=== PATIENT | male | born 1965 | race Caucasian/White ===

== ENCOUNTER 2017-09-10 22:41 | Emergency (ER) | payer MEDICARE, SELFPAY ==
[~2017-09-10] VITALS: Ht 177.8 cm; Wt 118.8 kg
[~2017-09-10 22:41] MED LIST: ASPI81CH PO; BUPR100 PO; EXEN5PENI SC; LEVO750 PO; LISI20 PO; METF500C PO; OMEPRAZOLE PO; PROC10 PO; RANI150 PO; SIMV40 PO; TAMS.4ER PO; TRAZ50 PO
[2017-09-10] MEDS ORDERED: Omeprazole20 M1 PO (23:05)
[2017-09-10] MEDS ORDERED: UROCIT-K5 MEQ PO (23:06)
[2017-09-10] MEDS ORDERED: FINA5 PO (23:07)
[2017-09-10] MEDS ORDERED: ALBU90OI INH (23:08)
[2017-09-10] MEDS ORDERED: VITAMIN B122500 MC1 PO (23:08)
[2017-09-10] MEDS ORDERED: MULTI VITAMIN1 EACH PO (23:09)
[2017-09-10 23:28] LABS: BASOPHILS ABSOLUTE AUTO 0.05 K/mm3 (0.00-0.23); BASOPHILS PERCENT AUTO 1 % (0-2); EOSINOPHILS ABSOLUTE AUTO 0.18 K/mm3 (0.00-0.68); EOSINOPHILS PERCENT AUTO 3 % (0-6); Hematocrit 37.9 % (37.0-53.0); IMMATURE GRAN ABSOLUTE AUTO 0.03 K/mm3 (0.00-0.10); IMMATURE GRAN PERCENT AUTO 1 % (0-1); LYMPHOCYTES ABSOLUTE AUTO 1.77 K/mm3 (0.84-5.20); LYMPHOCYTES PERCENT AUTO 27 % (21-46); MONOCYTES ABSOLUTE AUTO 0.48 K/mm3 (0.16-1.47); MONOCYTES PERCENT AUTO 7 % (4-13); Mean Corpuscular HGB 28.8 pg (26.0-34.0); Mean Corpuscular HGB Conc 34.3 g/dL (31.5-36.5); Mean Corpuscular Volume 84 fL (80-100); Mean Platelet Volume 9.3 fL (9.1-12.4); NEUTROPHILS ABSOLUTE AUTO 3.99 K/mm3 (1.96-9.15); NEUTROPHILS PERCENT AUTO 61 % (41-73); Platelet Count 247 K/mm3 (150-400); RDW Coefficient Variation 12.5 % (11.7-14.2); RDW Standard Deviation 37.4 fL (35.1-46.3); Red Blood Cell Count 4.52 M/mm3 (4.30-5.90)
[2017-09-10 23:47] LABS: Alanine Aminotransfer (ALT/SGP 37 U/L (12-78); Albumin, Blood 3.5 g/dL (3.4-5.0); Alk Phos 44 U/L (50-136); Anion Gap 7 mmol/L (6-16); Aspartate Aminotrans (AST/SGOT 27 U/L (12-37); Bilirubin, Total 0.2 mg/dL (0.1-1.0); Blood Urea Nitrogen 8 mg/dL (8-24); Bun/Creatinine Ratio 8.1 (12.0-20.0); CO2, Blood 26 mmol/L (21-32); Calcium, Blood 8.4 mg/dL (8.5-10.1); Chloride, Blood 109 mmol/L (98-108); Creatinine, Blood 0.98 mg/dL (0.60-1.20); Globulin, Blood 3.4 g/dL (2.2-4.0); Glomerular Filtration Rate >60 (60-); Glucose, Blood 127 mg/dL (70-99); Potassium, Blood 3.6 mmol/L (3.5-5.5); Sodium, Blood 142 mmol/L (136-145); Total Protein, Blood 6.9 g/dL (6.4-8.2)
== END 2017-09-11 01:54 | disposition home or self-care (01) ==
LOC: ER 22:41
PROVIDERS: Emergency Medicine
DX: S00.03XA Contusion of scalp, initial encounter (principal); F03.90 Unspecified dementia, unspecified severity, without behavioral disturbance, psychotic disturbance, mood disturbance, and anxiety; Z79.82 Long term (current) use of aspirin; Z88.0 Allergy status to penicillin; Z88.2 Allergy status to sulfonamides; Z91.013 Allergy to seafood; Z88.5 Allergy status to narcotic agent; Z91.018 Allergy to other foods; Z79.899 Other long term (current) drug therapy; W22.8XXA Striking against or struck by other objects, initial encounter
CPT/HCPCS: 36415; 70450; 80053; 85025; 93005; 93010; 96374; 96375; 99284; J1170; J2405

== ENCOUNTER 2018-08-03 19:00 | Emergency (ER) | payer MEDICARE, SELFPAY ==
[~2018-08-03] VITALS: Ht 177.8 cm; Wt 122.5 kg
[~2018-08-03 19:00] MED LIST changes: +ALBU90OI INH; +FINA5 PO; +MULTI VITAMIN1 EACH PO; +Omeprazole20 M1 PO; +UROCIT-K5 MEQ PO; +VITAMIN B122500 MC1 PO
[2018-08-03 19:44] LABS: BASOPHILS ABSOLUTE AUTO 0.04 K/mm3 (0.00-0.23); BASOPHILS PERCENT AUTO 0 % (0-2); EOSINOPHILS ABSOLUTE AUTO 0.14 K/mm3 (0.00-0.68); EOSINOPHILS PERCENT AUTO 2 % (0-6); Hematocrit 41.8 % (37.0-53.0); Hemoglobin 13.9 g/dL (13.5-17.5); IMMATURE GRAN ABSOLUTE AUTO 0.08 K/mm3 (0.00-0.10); IMMATURE GRAN PERCENT AUTO 1 % (0-1); LYMPHOCYTES ABSOLUTE AUTO 2.39 K/mm3 (0.84-5.20); LYMPHOCYTES PERCENT AUTO 26 % (21-46); MONOCYTES ABSOLUTE AUTO 0.77 K/mm3 (0.16-1.47); MONOCYTES PERCENT AUTO 8 % (4-13); Mean Corpuscular HGB 29.3 pg (26.0-34.0); Mean Corpuscular HGB Conc 33.3 g/dL (31.5-36.5); Mean Corpuscular Volume 88 fL (80-100); Mean Platelet Volume 9.1 fL (9.1-12.4); NEUTROPHILS ABSOLUTE AUTO 5.94 K/mm3 (1.96-9.15); NEUTROPHILS PERCENT AUTO 64 % (41-73); Platelet Count 241 K/mm3 (150-400); RDW Coefficient Variation 12.5 % (11.7-14.2); RDW Standard Deviation 40.4 fL (35.1-46.3); Red Blood Cell Count 4.75 M/mm3 (4.30-5.90); White Blood Cell Count 9.36 K/mm3 (4.00-11.30)
[2018-08-03 20:23] LABS: Alanine Aminotransfer (ALT/SGP 37 U/L (12-78); Albumin/Globulin Ratio 1.2 (0.8-1.8); Alk Phos 39 U/L (50-136); Anion Gap 8 mmol/L (6-16); Aspartate Aminotrans (AST/SGOT 24 U/L (12-37); Bilirubin, Total 0.2 mg/dL (0.1-1.0); Blood Urea Nitrogen 11 mg/dL (8-24); Bun/Creatinine Ratio 10.4 (12.0-20.0); CO2, Blood 27 mmol/L (21-32); Calcium, Blood 8.8 mg/dL (8.5-10.1); Chloride, Blood 107 mmol/L (98-108); Creatinine, Blood 1.06 mg/dL (0.60-1.20); Globulin, Blood 3.4 g/dL (2.2-4.0); Glomerular Filtration Rate >60 (60-); Glucose, Blood 82 mg/dL (70-99); Potassium, Blood 4.2 mmol/L (3.5-5.5); Sodium, Blood 142 mmol/L (136-145); Total Protein, Blood 7.4 g/dL (6.4-8.2); Troponin I <0.015 ng/mL (0.000-0.040)
[2018-08-03] MEDS ORDERED: ONDA4ODT MM (23:02)
== END 2018-08-03 23:17 | disposition home or self-care (01) ==
LOC: ER 19:00
PROVIDERS: Emergency Medicine
DX: S06.0X9A Concussion with loss of consciousness of unspecified duration, initial encounter (principal); R55 Syncope and collapse; Z91.018 Allergy to other foods; Z91.013 Allergy to seafood; Z88.0 Allergy status to penicillin; Z88.5 Allergy status to narcotic agent; Z79.899 Other long term (current) drug therapy; W19.XXXA Unspecified fall, initial encounter
CPT/HCPCS: 36415; 70450; 71046; 80053; 84484; 85025; 93005; 93010; 96374; 99285-25; J2405

== ENCOUNTER → 2019-04-22 | Outpatient (CLI) | payer MEDICARE, OTHER ==
[~2019-04-22] MED LIST changes: +ONDA4ODT MM
== END | disposition home or self-care (01) ==
LOC: LAB 19:14 → LAB SHORT 19:14
DX: N34.2 Other urethritis (principal)
CPT/HCPCS: 87086

== ENCOUNTER 2019-09-03 18:11 | Inpatient (IN) | payer MEDICARE, OTHER ==
[~2019-09-03] VITALS: Ht 177.8 cm; Wt 127.0 kg
[~2019-09-03 18:11] MED LIST changes: -Omeprazole20 M1 PO; -TRAZ50 PO; -UROCIT-K5 MEQ PO
[2019-09-03 19:10] LABS: Base Excess Venous 1.2 mmol/L; Bicarbonate Venous 24.5 mmol/L (24.0-30.0); PCO2 Venous 37.3 mmHg (38-42); pH Blood Venous 7.44 (7.34-7.37)
[2019-09-03 19:23] LABS: BASOPHILS ABSOLUTE AUTO 0.02 K/mm3 (0.00-0.23); BASOPHILS PERCENT AUTO 0 % (0-2); EOSINOPHILS ABSOLUTE AUTO 0.03 K/mm3 (0.00-0.68); EOSINOPHILS PERCENT AUTO 1 % (0-6); Hematocrit 43.5 % (37.0-53.0); Hemoglobin 14.7 g/dL (13.5-17.5); IMMATURE GRAN ABSOLUTE AUTO 0.03 K/mm3 (0.00-0.10); IMMATURE GRAN PERCENT AUTO 1 % (0-1); LYMPHOCYTES ABSOLUTE AUTO 1.36 K/mm3 (0.84-5.20); LYMPHOCYTES PERCENT AUTO 24 % (21-46); MONOCYTES ABSOLUTE AUTO 0.57 K/mm3 (0.16-1.47); MONOCYTES PERCENT AUTO 10 % (4-13); Mean Corpuscular HGB Conc 33.8 g/dL (31.5-36.5); Mean Corpuscular Volume 86 fL (80-100); Mean Platelet Volume 9.4 fL (9.1-12.4); NEUTROPHILS ABSOLUTE AUTO 3.58 K/mm3 (1.96-9.15); NEUTROPHILS PERCENT AUTO 64 % (41-73); Platelet Count 198 K/mm3 (150-400); RDW Coefficient Variation 12.8 % (11.7-14.2); Red Blood Cell Count 5.07 M/mm3 (4.30-5.90); White Blood Cell Count 5.59 K/mm3 (4.00-11.30)
[2019-09-03] MEDS ORDERED: MONDOXYNE NL100 MG PO (19:39)
[2019-09-03] MEDS ORDERED: METF500C PO (19:40)
[2019-09-03] MEDS ORDERED: CODEINE-GUAIFE120 ML PO (19:40)
[2019-09-03 19:41] LABS: Alanine Aminotransfer (ALT/SGP 54 U/L (12-78); Albumin, Blood 3.8 g/dL (3.4-5.0); Alk Phos 45 U/L (50-136); Anion Gap 6 mmol/L (6-16); Aspartate Aminotrans (AST/SGOT 33 U/L (12-37); Bilirubin, Total 0.4 mg/dL (0.1-1.0); Blood Urea Nitrogen 9 mg/dL (8-24); Bun/Creatinine Ratio 10.3 (12.0-20.0); CO2, Blood 25 mmol/L (21-32); Calcium, Blood 9.5 mg/dL (8.5-10.1); Chloride, Blood 103 mmol/L (98-108); Creatinine, Blood 0.88 mg/dL (0.60-1.20); Globulin, Blood 3.8 g/dL (2.2-4.0); Glomerular Filtration Rate >60 (60-); Glucose, Blood 109 mg/dL (70-99); Potassium, Blood 3.7 mmol/L (3.5-5.5); Sodium, Blood 134 mmol/L (136-145); Total Protein, Blood 7.6 g/dL (6.4-8.2); Troponin I <0.015 ng/mL (0.000-0.040)
[2019-09-03] MEDS ORDERED: Omeprazole20 M1 PO (20:22)
[2019-09-03] MEDS ORDERED: UROCIT-K5 MEQ PO (20:25)
[2019-09-03] MEDS ORDERED: TRAZ50 PO (21:01)
[2019-09-03] MEDS ORDERED: XYZAL5 MG PO (21:02)
[2019-09-03] MEDS ORDERED: Aspir 8181 MG PO (21:02)
[2019-09-04 00:38] LABS: Adenovirus Not Detected (NOT DETECT); Bordetella pertussis Not Detected (NOT DETECT); Chlamydophila pneumoniae Not Detected (NOT DETECT); Coronavirus 229E Not Detected (NOT DETECT); Coronavirus HKU1 Not Detected (NOT DETECT); Coronavirus NL63 Not Detected (NOT DETECT); Coronavirus OC43 Not Detected (NOT DETECT); Human Metapneumovirus Not Detected (NOT DETECT); Human Rhinovirus/Enterovirus Not Detected (NOT DETECT); Influenza A Detected (NOT DETECT); Influenza A/2009-H1 Detected (NOT DETECT); Influenza A/H1 Not Detected (NOT DETECT); Influenza A/H3 Not Detected (NOT DETECT); Influenza B Not Detected (NOT DETECT); Mycoplasma pneumoniae Not Detected (NOT DETECT); Parainfluenza Virus 1 Not Detected (NOT DETECT); Parainfluenza Virus 2 Not Detected (NOT DETECT); Parainfluenza Virus 3 Not Detected (NOT DETECT); Parainfluenza Virus 4 Not Detected (NOT DETECT); Respiratory Syncytial Virus Not Detected (NOT DETECT)
[2019-09-04 08:40] LABS: Hematocrit 41.7 % (37.0-53.0); Mean Corpuscular HGB 28.8 pg (26.0-34.0); Mean Corpuscular HGB Conc 33.6 g/dL (31.5-36.5); Mean Corpuscular Volume 86 fL (80-100); Mean Platelet Volume 9.4 fL (9.1-12.4); Platelet Count 191 K/mm3 (150-400); RDW Coefficient Variation 12.5 % (11.7-14.2); RDW Standard Deviation 39.2 fL (35.1-46.3); Red Blood Cell Count 4.86 M/mm3 (4.30-5.90); White Blood Cell Count 4.85 K/mm3 (4.00-11.30)
[2019-09-04 09:27] LABS: Alanine Aminotransfer (ALT/SGP 45 U/L (12-78); Albumin, Blood 3.5 g/dL (3.4-5.0); Albumin/Globulin Ratio 0.9 (0.8-1.8); Alk Phos 40 U/L (50-136); Anion Gap 8 mmol/L (6-16); Aspartate Aminotrans (AST/SGOT 28 U/L (12-37); Bilirubin, Total 0.3 mg/dL (0.1-1.0); Blood Urea Nitrogen 11 mg/dL (8-24); Bun/Creatinine Ratio 14.6 (12.0-20.0); CO2, Blood 22 mmol/L (21-32); Chloride, Blood 105 mmol/L (98-108); Creatinine, Blood 0.75 mg/dL (0.60-1.20); Globulin, Blood 3.9 g/dL (2.2-4.0); Glomerular Filtration Rate >60 (60-); Glucose, Blood 178 mg/dL (70-99); Potassium, Blood 3.9 mmol/L (3.5-5.5); Sodium, Blood 135 mmol/L (136-145); Total Protein, Blood 7.4 g/dL (6.4-8.2)
--- NOTE | 2019-09-04 13:15 | NUR ---
PT ARRIVAL ON UNIT... PT ARRIVED ON UNIT. PT'S VS STABLE AT THIS TIME, PT IS ON RA. PT'S FAMILY IS AT THE BEDSIDE. PT IS A&Ox4 WITH MOMENTS OF FORGETFULNESS. PT IS ABLE TO STAND AT THE BEDSIDE TO VOID IN THE URINAL. CALL LIGHT IN REACH WILL CONTINUE TO MONITOR.
--- NOTE | 2019-09-04 15:30 | NUR ---
Echocardiogram completed.
--- NOTE | 2019-09-04 22:11 | NUR ---
CARE ASSUMPTION / TRANSFER TO MEDICAL PT MEDICAL NO TELE STATUS. A&O X4. VSS. LUNG SOUNDS CLEAR, DIM IN BASES. SPO2 > 92% ON RA. HOME CPAP AT BEDSIDE. SPUTUM SAMPLE NEEDED, PT REPORTS OCCASSIONAL COUGH, BUT HAS BEEN NONPRODUCTIVE. PT REPORTS CHEST PRESSURE W/ COUGH. PT ABLE TO STAND AND AMBULATE TO WHEEL CHAIR TO BE TRANSPORTED TO MEDICAL FLOOR. PT TRANSFERRED TO 305 BY WHEELCHAIR & DIRECTOR PEDIATRIC W/ BELONGINGS @ APPROX 2210. REPORT CALLED TO MEDICAL FLOOR RN BEFORE TRANSFER TO .
--- NOTE | 2019-09-04 22:20 | NUR ---
PT ARRIVES FROM [facility] TO ROOM 305. AAOX4, PLEASANT. NO APPARENT DISTRESS NOTED. DENIES SOB.
--- NOTE | 2019-09-05 04:50 | NUR ---
TOUR OPERATOR SUMMARY NO ACUTE CHANGES THIS SHIFT. PT TRANSFERED FROM [facility] DURING FIRST PART OF THE SHIFT. PT AAOX4 AND PLEASANT. STANDBY ASSIST WITH AMBULATION. DENIES PAIN, SOB, N/V. LUNGS CLEAR AND PT DENIES SOB. DROPLET ISOLATION CONTINUED FOR INFLUENZA A. VSS, WILL CONTINUE TO MONITOR.
--- NOTE | 2019-09-05 16:39 | NUR ---
HE HAS HAD NO COMPLAINTS ALL DAY BUT DOES ADMIT TO FEELING TIRED, ACHEY AND HAS AN INTERMITTENT NON-PRODUCTIVE COUGH. HE HAS SLEPT, HAD VISITORS, WATCHED TV AND BEEN ON HIS PHONE. HE DRINKS AND EATS WELL. HE DENIES ANY DIFFICULTY VOIDING AND HAD 1 BM TODAY. NO FEVER. HE IS ON RA AND PLANS ON BEING DISCHARGED TOMORROW TO HOME.
[2019-09-06 04:51] LABS: BASOPHILS ABSOLUTE AUTO 0.02 K/mm3 (0.00-0.23); BASOPHILS PERCENT AUTO 0 % (0-2); EOSINOPHILS PERCENT AUTO 0 % (0-6); Hematocrit 40.2 % (37.0-53.0); Hemoglobin 13.4 g/dL (13.5-17.5); IMMATURE GRAN ABSOLUTE AUTO 0.13 K/mm3 (0.00-0.10); IMMATURE GRAN PERCENT AUTO 1 % (0-1); LYMPHOCYTES ABSOLUTE AUTO 2.36 K/mm3 (0.84-5.20); LYMPHOCYTES PERCENT AUTO 17 % (21-46); MONOCYTES ABSOLUTE AUTO 0.75 K/mm3 (0.16-1.47); MONOCYTES PERCENT AUTO 6 % (4-13); Mean Corpuscular HGB 29.1 pg (26.0-34.0); Mean Corpuscular HGB Conc 33.3 g/dL (31.5-36.5); Mean Corpuscular Volume 87 fL (80-100); Mean Platelet Volume 8.8 fL (9.1-12.4); NEUTROPHILS PERCENT AUTO 76 % (41-73); Platelet Count 220 K/mm3 (150-400); RDW Standard Deviation 41.5 fL (35.1-46.3); White Blood Cell Count 13.56 K/mm3 (4.00-11.30)
[2019-09-06 05:06] LABS: Anion Gap 7 mmol/L (6-16); Blood Urea Nitrogen 18 mg/dL (8-24); CO2, Blood 26 mmol/L (21-32); Calcium, Blood 8.7 mg/dL (8.5-10.1); Chloride, Blood 106 mmol/L (98-108); Creatinine, Blood 0.95 mg/dL (0.60-1.20); Glomerular Filtration Rate >60 (60-); Glucose, Blood 111 mg/dL (70-99); Potassium, Blood 3.9 mmol/L (3.5-5.5); Sodium, Blood 139 mmol/L (136-145)
--- NOTE | 2019-09-06 05:43 | NUR ---
SHIFT SUMMARY PT IS A 53 Y/O MALE, ADMITTED FOR ACUTE BRONCHITIS AND FOUND POSITIVE FOR THE FLU. HE IS A&O X 4, AND INDEPENDENT UP TO THE BATHROOM. PT DENIED ANY COMPLAINTS OF PAIN, NAUSEA OR SOB, AND STATED THAT HE IS FEELING "BETTER". PT SLEPT WELL THROUGH THE NIGHT. VITAL SIGNS STABLE. NO ACUTE CHANGES IN PT CONDITION NOTED. WILL CONTINUE TO MONITOR AND TREAT PER EMAR UNTIL HAND OFF TO DAY SHIFT RN.
[2019-09-06] MEDS ORDERED: ALBU90OI INH (10:51)
[2019-09-06] MEDS ORDERED: AZIT250 PO (10:52)
[2019-09-06] MEDS ORDERED: BENZ100A PO (10:55)
[2019-09-06] MEDS ORDERED: ONDA4ODT (10:56)
[2019-09-06] MEDS ORDERED: OSEL75CA PO (10:58)
[2019-09-06] MEDS ORDERED: Prednisone10 MG PO (10:59)
[2019-09-06] MEDS ORDERED: Florastor250 MG PO (11:00)
--- NOTE | 2019-09-06 11:14 | NUR ---
DISCHARGE NOTE PT DISCHARGED TO HOME. PT LEFT ROOM VIA WHEELCHAIR WITH SENIOR RESTAURANT MANAGER ESCORT AT 1106 WITH SPOUSE PRESENT. IV DC'D AND BELONGINGS RETURNED. PT EDUCATED ON ALL DISCHARGE INSTRUCTIONS. PT AGREES TO FOLLOW UP WITH PCP SCHEDULED. ALL QUESTIONS ANSWERED.
== END 2019-09-06 11:07 | disposition home or self-care (01) | DRG 871 ==
LOC: ER 18:11 → ERHOLD 21:45 → PCU 09-04 13:03 → MEDS 09-04 22:21
PROVIDERS: Emergency Medicine; Family Medicine; Physician Assistant; ADMIT Internal Medicine
DX: A41.89 Other specified sepsis (principal); J96.21 Acute and chronic respiratory failure with hypoxia; J44.1 Chronic obstructive pulmonary disease with (acute) exacerbation; Z68.41 Body mass index [BMI] 40.0-44.9, adult; J44.0 Chronic obstructive pulmonary disease with (acute) lower respiratory infection; J45.31 Mild persistent asthma with (acute) exacerbation; E11.9 Type 2 diabetes mellitus without complications; E66.01 Morbid (severe) obesity due to excess calories; E78.5 Hyperlipidemia, unspecified; F03.90 Unspecified dementia, unspecified severity, without behavioral disturbance, psychotic disturbance, mood disturbance, and anxiety; G47.00 Insomnia, unspecified; G47.33 Obstructive sleep apnea (adult) (pediatric); I10 Essential (primary) hypertension; Z79.01 Long term (current) use of anticoagulants; Z87.820 Personal history of traumatic brain injury; J20.9 Acute bronchitis, unspecified; N40.0 Benign prostatic hyperplasia without lower urinary tract symptoms; J11.1 Influenza due to unidentified influenza virus with other respiratory manifestations
CPT/HCPCS: 0099U; 36415; 71045; 71046; 80048; 80053; 82803; 82947; 83605; 83880; 84145; 84484; 85025; 85027; 87070; 87205; 93005; 93010; 93306; 94640; 94644; 94762; 96365; 96372-59; 96375; 96376; 99285-25; A9270-GY; J1100; J1650; J1956; J2930; J7030; J7512

== ENCOUNTER 2021-02-02 01:21 | Emergency (ER) | payer MEDICARE | END 2021-02-02 03:01 | disposition home or self-care (01) | LOC: ER 01:21 | DX: M25.512 Pain in left shoulder (principal) ==

== ENCOUNTER → 2021-02-25 | Outpatient (CLI) | payer MEDICARE, OTHER ==
[~2021-02-25] MED LIST changes: +AZIT250 PO; +Aspir 8181 MG PO; +BENZ100A PO; +CODEINE-GUAIFE120 ML PO; +Florastor250 MG PO; +MONDOXYNE NL100 MG PO; +ONDA4ODT; +OSEL75CA PO; +Omeprazole20 M1 PO; +Prednisone10 MG PO; +TRAZ50 PO; +UROCIT-K5 MEQ PO; +XYZAL5 MG PO
== END | disposition home or self-care (01) ==
LOC: LAB 13:40 → LAB SHORT 13:40
DX: D22.5 Melanocytic nevi of trunk (principal); D23.62 Other benign neoplasm of skin of left upper limb, including shoulder
CPT/HCPCS: 88305

== ENCOUNTER 2021-07-26 21:58 | Observation (INO) | payer MEDICARE ==
[~2021-07-26] VITALS: Ht 177.8 cm; Wt 136.1 kg
[2021-07-26 23:06] LABS: BASOPHILS ABSOLUTE AUTO 0.05 K/mm3 (0.00-0.23); BASOPHILS PERCENT AUTO 0 % (0-2); EOSINOPHILS ABSOLUTE AUTO 0.06 K/mm3 (0.00-0.68); EOSINOPHILS PERCENT AUTO 1 % (0-6); Hematocrit 44.2 % (37.0-53.0); IMMATURE GRAN ABSOLUTE AUTO 0.09 K/mm3 (0.00-0.10); IMMATURE GRAN PERCENT AUTO 1 % (0-1); LYMPHOCYTES ABSOLUTE AUTO 1.74 K/mm3 (0.84-5.20); LYMPHOCYTES PERCENT AUTO 14 % (21-46); MONOCYTES ABSOLUTE AUTO 0.78 K/mm3 (0.16-1.47); MONOCYTES PERCENT AUTO 6 % (4-13); Mean Corpuscular HGB Conc 33.9 g/dL (31.5-36.5); Mean Corpuscular Volume 85 fL (80-100); Mean Platelet Volume 9.4 fL (9.1-12.4); NEUTROPHILS ABSOLUTE AUTO 9.83 K/mm3 (1.96-9.15); NEUTROPHILS PERCENT AUTO 78 % (41-73); Platelet Count 240 K/mm3 (150-400); RDW Coefficient Variation 12.6 % (11.7-14.2); RDW Standard Deviation 39.3 fL (35.1-46.3); Red Blood Cell Count 5.18 M/mm3 (4.30-5.90); White Blood Cell Count 12.55 K/mm3 (4.00-11.30)
[2021-07-26 23:19] LABS: Alanine Aminotransfer (ALT/SGP 35 U/L (12-78); Albumin, Blood 3.8 g/dL (3.4-5.0); Albumin/Globulin Ratio 1.1 (0.8-1.8); Alk Phos 40 U/L (50-136); Anion Gap 8 mmol/L (6-16); Aspartate Aminotrans (AST/SGOT 19 U/L (12-37); Bilirubin, Total 0.3 mg/dL (0.1-1.0); Blood Urea Nitrogen 8 mg/dL (8-24); Bun/Creatinine Ratio 7.1 (12.0-20.0); CO2, Blood 23 mmol/L (21-32); Calcium, Blood 9.3 mg/dL (8.5-10.1); Chloride, Blood 106 mmol/L (98-108); Creatinine, Blood 1.12 mg/dL (0.60-1.20); Globulin, Blood 3.6 g/dL (2.2-4.0); Glomerular Filtration Rate >60 (60-); Glucose, Blood 164 mg/dL (70-99); Potassium, Blood 4.3 mmol/L (3.5-5.5); Sodium, Blood 137 mmol/L (136-145); Total Protein, Blood 7.4 g/dL (6.4-8.2)
[2021-07-27 02:29] LABS: Source, Urine Clean Catch
[2021-07-27 02:31] LABS: Bilirubin, Urine Neg (Neg); Blood, Urine Neg (Neg); Glucose Qualitative, Urine Neg (Neg); Ketones, Urine 3+ (Neg); Leukocyte Esterase, Urine 1+ (Neg); Nitrite, Urine Neg (Neg); Protein, Urine 3+ (Neg); Specific Gravity, Urine 1.025 (1.003-1.022); Urobilinogen, Urine NORM (Normal)
[2021-07-27 02:39] LABS: Appearance, Urine Hazy (Clear); Color, Urine Yellow (P-Yellow)
[2021-07-27 02:40] LABS: Amorphous Light (0-Heavy); Bacteria Few /hpf; Hyaline Casts 0-2 /lpf (0-2); Mucus Mod (0-Heavy); Red Blood Cells, Urine Not Seen /hpf (0-2); Squamous Epithelial Cells Few /hpf (Few)
[2021-07-27 04:27] LABS: BASOPHILS ABSOLUTE AUTO 0.03 K/mm3 (0.00-0.23); BASOPHILS PERCENT AUTO 0 % (0-2); EOSINOPHILS PERCENT AUTO 0 % (0-6); Hematocrit 42.9 % (37.0-53.0); Hemoglobin 14.4 g/dL (13.5-17.5); IMMATURE GRAN PERCENT AUTO 1 % (0-1); LYMPHOCYTES ABSOLUTE AUTO 0.94 K/mm3 (0.84-5.20); LYMPHOCYTES PERCENT AUTO 6 % (21-46); MONOCYTES ABSOLUTE AUTO 0.49 K/mm3 (0.16-1.47); MONOCYTES PERCENT AUTO 3 % (4-13); Mean Corpuscular HGB 28.7 pg (26.0-34.0); Mean Corpuscular HGB Conc 33.6 g/dL (31.5-36.5); Mean Corpuscular Volume 86 fL (80-100); Mean Platelet Volume 9.4 fL (9.1-12.4); NEUTROPHILS ABSOLUTE AUTO 14.47 K/mm3 (1.96-9.15); NEUTROPHILS PERCENT AUTO 90 % (41-73); Platelet Count 233 K/mm3 (150-400); RDW Coefficient Variation 12.8 % (11.7-14.2); RDW Standard Deviation 39.4 fL (35.1-46.3); Red Blood Cell Count 5.02 M/mm3 (4.30-5.90); White Blood Cell Count 16.03 K/mm3 (4.00-11.30)
[2021-07-27 04:40] LABS: Anion Gap 6 mmol/L (6-16); Blood Urea Nitrogen 10 mg/dL (8-24); Bun/Creatinine Ratio 9.6 (12.0-20.0); CO2, Blood 24 mmol/L (21-32); Calcium, Blood 9.2 mg/dL (8.5-10.1); Chloride, Blood 107 mmol/L (98-108); Creatinine, Blood 1.04 mg/dL (0.60-1.20); Glomerular Filtration Rate >60 (60-); Glucose, Blood 166 mg/dL (70-99); Potassium, Blood 4.3 mmol/L (3.5-5.5); Sodium, Blood 137 mmol/L (136-145)
[2021-07-27] MEDS ORDERED: LISI20 PO (16:00)
[2021-07-27] MEDS ORDERED: GABA100 PO (16:00)
[2021-07-27] MEDS ORDERED: OMEPRAZOLE DR 40MG (16:01)
[2021-07-27] MEDS ORDERED: MECL25 PO (16:44)
[2021-07-27] MEDS ORDERED: CIPR500 PO (16:44)
== END 2021-07-27 17:13 | disposition home or self-care (01) ==
LOC: ER 21:58 → ERHOLD 21:59
PROVIDERS: Family Medicine; Student in an Organized Health Care Education/Training Program; ADMIT Internal Medicine
DX: R42 Dizziness and giddiness (principal); R51.9 Headache, unspecified; R47.1 Dysarthria and anarthria; E11.9 Type 2 diabetes mellitus without complications; I10 Essential (primary) hypertension; E66.9 Obesity, unspecified; G47.33 Obstructive sleep apnea (adult) (pediatric); Z79.84 Long term (current) use of oral hypoglycemic drugs; Z79.82 Long term (current) use of aspirin; Z86.73 Personal history of transient ischemic attack (TIA), and cerebral infarction without residual deficits
CPT/HCPCS: 36415; 70450; 70496; 70498; 80048; 80053; 81001; 82947; 85025; 87086; 92610; 93005; 93010; 96374; 96375; 99285-25; A9270; G0378; J1885; J2405; J2765; J7030; Q9967

== ENCOUNTER 2021-12-31 14:43 | Emergency (ER) | payer MEDICARE ==
[~2021-12-31] VITALS: Ht 180.3 cm; Wt 138.3 kg
[~2021-12-31 14:43] MED LIST changes: +CIPR500 PO; +GABA100 PO; +MECL25 PO; +OMEPRAZOLE DR 40MG
[2021-12-31] MEDS ORDERED: Norco 5-325 Ta1 EACH PO (16:12)
[2021-12-31] MEDS ORDERED: LIDOCAINE1 EACH TOP (16:12)
== END 2021-12-31 16:19 | disposition home or self-care (01) ==
LOC: ER 14:43
DX: M79.651 Pain in right thigh (principal); G47.33 Obstructive sleep apnea (adult) (pediatric); I10 Essential (primary) hypertension; F03.90 Unspecified dementia, unspecified severity, without behavioral disturbance, psychotic disturbance, mood disturbance, and anxiety; Z86.73 Personal history of transient ischemic attack (TIA), and cerebral infarction without residual deficits; Z79.899 Other long term (current) drug therapy; Z79.82 Long term (current) use of aspirin; Z79.84 Long term (current) use of oral hypoglycemic drugs; Z88.5 Allergy status to narcotic agent; Z88.0 Allergy status to penicillin; Z88.2 Allergy status to sulfonamides; Z88.8 Allergy status to other drugs, medicaments and biological substances; Z91.018 Allergy to other foods
CPT/HCPCS: 93971; A9270; J1885

== ENCOUNTER 2022-02-20 21:57 | Observation (INO) | payer MEDICARE ==
[~2022-02-20] VITALS: Ht 180.3 cm; Wt 200.0 kg
[~2022-02-20 21:57] MED LIST changes: -GABA100 PO; +GABA300 PO; +LIDOCAINE1 EACH TOP; +Norco 5-325 Ta1 EACH PO
[2022-02-20 22:29] LABS: BASOPHILS ABSOLUTE AUTO 0.05 K/mm3 (0.00-0.23); BASOPHILS PERCENT AUTO 0 % (0-2); EOSINOPHILS ABSOLUTE AUTO 0.11 K/mm3 (0.00-0.68); EOSINOPHILS PERCENT AUTO 1 % (0-6); IMMATURE GRAN ABSOLUTE AUTO 0.06 K/mm3 (0.00-0.10); IMMATURE GRAN PERCENT AUTO 1 % (0-1); LYMPHOCYTES ABSOLUTE AUTO 2.15 K/mm3 (0.84-5.20); LYMPHOCYTES PERCENT AUTO 17 % (21-46); MONOCYTES PERCENT AUTO 9 % (4-13); Mean Corpuscular HGB 29.4 pg (26.0-34.0); Mean Corpuscular HGB Conc 34.1 g/dL (31.5-36.5); Mean Corpuscular Volume 86 fL (80-100); Mean Platelet Volume 9.4 fL (9.1-12.4); NEUTROPHILS PERCENT AUTO 73 % (41-73); Platelet Count 230 K/mm3 (150-400); RDW Coefficient Variation 13.2 % (11.7-14.2); Red Blood Cell Count 4.76 M/mm3 (4.30-5.90); White Blood Cell Count 12.67 K/mm3 (4.00-11.30)
[2022-02-20 22:45] LABS: Alanine Aminotransfer (ALT/SGP 34 U/L (12-78); Albumin, Blood 3.8 g/dL (3.4-5.0); Albumin/Globulin Ratio 1.1 (0.8-1.8); Alk Phos 44 U/L (50-136); Anion Gap 6 mmol/L (6-16); Aspartate Aminotrans (AST/SGOT 28 U/L (12-37); Bilirubin, Total 0.4 mg/dL (0.1-1.0); Blood Urea Nitrogen 10 mg/dL (8-24); CO2, Blood 28 mmol/L (21-32); Calcium, Blood 9.6 mg/dL (8.5-10.1); Chloride, Blood 106 mmol/L (98-108); Creatinine, Blood 1.25 mg/dL (0.60-1.20); Globulin, Blood 3.5 g/dL (2.2-4.0); Glomerular Filtration Rate 68 (60-); Glucose, Blood 90 mg/dL (70-99); Potassium, Blood 3.7 mmol/L (3.5-5.5); Sodium, Blood 140 mmol/L (136-145); Total Protein, Blood 7.3 g/dL (6.4-8.2)
[2022-02-20 23:08] LABS: Magnesium, Blood 1.8 mg/dL (1.6-2.4)
[2022-02-21 00:09] LABS: Influenza A, PCR NEGATIVE (NEGATIVE); Influenza B, PCR NEGATIVE (NEGATIVE); Resp Syncytial Virus, PCR NEGATIVE (NEGATIVE); SARS-Cov-2 (COVID-19) PCR, MMC NEGATIVE (NEGATIVE)
[2022-02-21 01:43] LABS: Ethanol (Alcohol), Blood, Med <3 mg/dL
[2022-02-21 01:45] LABS: Base Excess Venous 1.5 mmol/L; Bicarbonate Venous 24.7 mmol/L (24.0-30.0); PCO2 Venous 45.7 mmHg (38-42); pH Blood Venous 7.38 (7.34-7.37)
[2022-02-21 02:06] LABS: U Amphetamine Screen Not Detected; U Barbituate Screen Not Detected; U Benzodiazapine Screen DETECTED; U Buprenorphine Screen Not Detected; U Cannabinoids Screen Not Detected; U Cocaine Screen Not Detected; U Methadone Screen Not Detected; U Methamphetamine Screen Not Detected; U Opiates Screen Not Detected; U Oxycodone Screen Not Detected; U Phencyclidine Screen Not Detected; U Propoxyphene Screen Not Detected
[2022-02-21 05:15] LABS: BASOPHILS ABSOLUTE AUTO 0.04 K/mm3 (0.00-0.23); BASOPHILS PERCENT AUTO 0 % (0-2); EOSINOPHILS ABSOLUTE AUTO 0.08 K/mm3 (0.00-0.68); EOSINOPHILS PERCENT AUTO 1 % (0-6); Hematocrit 40.1 % (37.0-53.0); Hemoglobin 13.6 g/dL (13.5-17.5); IMMATURE GRAN ABSOLUTE AUTO 0.05 K/mm3 (0.00-0.10); IMMATURE GRAN PERCENT AUTO 0 % (0-1); LYMPHOCYTES ABSOLUTE AUTO 1.79 K/mm3 (0.84-5.20); LYMPHOCYTES PERCENT AUTO 14 % (21-46); MONOCYTES ABSOLUTE AUTO 1.06 K/mm3 (0.16-1.47); MONOCYTES PERCENT AUTO 8 % (4-13); Mean Corpuscular HGB 29.4 pg (26.0-34.0); Mean Corpuscular HGB Conc 33.9 g/dL (31.5-36.5); Mean Corpuscular Volume 87 fL (80-100); Mean Platelet Volume 9.4 fL (9.1-12.4); NEUTROPHILS ABSOLUTE AUTO 9.55 K/mm3 (1.96-9.15); NEUTROPHILS PERCENT AUTO 76 % (41-73); Platelet Count 208 K/mm3 (150-400); RDW Coefficient Variation 13.3 % (11.7-14.2); RDW Standard Deviation 41.8 fL (35.1-46.3); Red Blood Cell Count 4.62 M/mm3 (4.30-5.90); White Blood Cell Count 12.57 K/mm3 (4.00-11.30)
--- NOTE | 2022-02-21 05:20 | NUR ---
ADMIT PT NEW ADMIT FOR CP. ARRIVED VIA GURNEY TO RM 312, SBY ASSIST TO RM BED. ORIENTED TO RM & CALL LIGHT. REPORTS 01/23 PRESSURE IN LUCW, STATES "LIKE SOMEONE IS SITTING ON ME". WILL MEDICATE & MONITOR.
[2022-02-21 05:45] LABS: Albumin, Blood 3.4 g/dL (3.4-5.0); Bilirubin, Total 0.5 mg/dL (0.1-1.0); Bun/Creatinine Ratio 9.7 (12.0-20.0); Calcium, Blood 9.3 mg/dL (8.5-10.1); Creatinine, Blood 1.03 mg/dL (0.60-1.20); Globulin, Blood 3.4 g/dL (2.2-4.0); Total Protein, Blood 6.8 g/dL (6.4-8.2)
[2022-02-21 06:34] LABS: CHOL/HDL RATIO 4.2; Cholesterol 134 mg/dL (50-200); HDL Cholesterol 32 mg/dL (>39); LDL/HDL RATIO 2.6; Low Density Lipoprotein Chol 82 mg/dL (0-110); Triglycerides 100 mg/dL (30-160); Very Low Density Lipoprot Chol 20 mg/dL (6-32)
--- NOTE | 2022-02-21 06:48 | NUR ---
SHIFT SUMMARY AOX3. SLOW TO RESPOND. VSS. WENT TO GIVE NITRO FOR 7/10 CP & PT WAS SOUND ASLEEP SNORING c CPAP ON, WILL INFORM ONCOMING NURSE. TELE NSR HR 94. REPORTS DYSPNEA @REST WHEN AWAKE. HAS BEEN NPO FOR POSSIBLE STRESS TEST. CALL LIGHT IN REACH.
--- NOTE | 2022-02-21 14:59 | NUR ---
DIZZINESS/HEADACHE: PATIENT UP TO THE BATHROOM. PATIENT INITIALLY HAD MILD DIZZINESS WHEN SITTING AT THE SIDE OF THE BED. THIS RESOLVED AND THE PATIENT WAS ABLE TO AMBULATE TO THE BATHROOM AND BACK WITHOUT DIFFICULTY. ONCE BACK IN THE BED, PATIENT EXPERIENCED OVERWHELMING DIZZINESS, REQUIRING HIM TO LIE BACK IN BED. PATIENT REPORTS AN INCREASE IN CHEST PAIN AND A NEW TYPE OF HEADACHE. AT BASELINE, HE HAS A HEADACHE ON THE TOP OF HIS HEAD. PATIENT REPORTS THAT THIS HEADACHE IS IN THE BACK OF HIS RIGHT EYE/RIGHT UPPER HEAD. VITALS ARE STABLE (SEE VITALS). NO CHANGES TO TELEMETRY PER GYMNASTIC TEACHER. NOTIFIED DR. KING OF ABOVE FINDINGS. NEW ORDERS ENTERED.
[2022-02-21] MEDS ORDERED: METF500C PO (15:12)
[2022-02-21] MEDS ORDERED: FLUTICASONE P15.8 M1 (15:15)
[2022-02-21] MEDS ORDERED: CLEM1.34 PO ×2 (15:15→15:16)
--- NOTE | 2022-02-21 20:11 | NUR ---
INCREASE IN HR: REPORTED INCREASING TREND IN HR, ELEVATED WBC, HX OF UTI WITH SEPSIS, DARK URINE, AND MALAISE TO MD. NEW ORDERS RECEIVED AND ENTERED.
--- NOTE | 2022-02-21 20:17 | NUR ---
END OF SHIFT SUMMARY: PATIENT REPORTED CHEST PRESSURE THROUGHOUT THE DAY WITH SOME SHORTNESS OF BREATH. PATIENT WAS ABLE TO GET SOME REST WITH HIS CPAP ON. PATIENT SPO2 >90% ON ROOM AIR AND WITH CPAP ON. PATIENT REPORTED GENERAL MALAISE. DISCUSSED WITH DR. KING THROUGHOUT THE DAY. NEW ORDERS RECEIVED AND ENTERED. PATIENT TOLERATED INITIAL PORTION OF STRESS TEST WELL. BY THE END OF THE SHIFT, PATIENT CONTINUED TO FEEL GENERAL MALAISE AND TO REPORT INCREASED PAIN IN LEFT SHOULDER AND DOWN LEFT ARM. STAT ORDERS PLACED AFTER DISCUSSION WITH DR. KING. DURING REPORT WITH IMPLEMENTATION ENGINEER RN, NOTED THAT THE PATIENT'S HR CONTINUED TO TREND SLIGHTLY UPWARDS DURING THE DAY. DISCUSSED WITH DR. CASTREJON. NEW ORDERS RECEIVED AND ENTERED.
[2022-02-21 20:57] LABS: Source, Urine Clean Catch
[2022-02-21 21:00] LABS: Appearance, Urine Clear (Clear); Bilirubin, Urine Neg (Neg); Blood, Urine Neg (Neg); Color, Urine Yellow (P-Yellow); Glucose Qualitative, Urine Neg (Neg); Ketones, Urine Neg (Neg); Leukocyte Esterase, Urine Neg (Neg); Nitrite, Urine Neg (Neg); Protein, Urine Neg (Neg); Urobilinogen, Urine NORM (Normal)
--- NOTE | 2022-02-22 02:05 | NUR ---
02/21/222048 PT REPORTS SORE THROAT AND NAUSE AND PRODUCTIVE COUGH. SPUTUM IS THICK AND YELLOW. PT REPORTS SOB THAT INCREASES WITH EXERTION, ON RA AT 95%. WEAKNESS IN L LE AND L UE, NOT NEW. WILL GET ORDERS AND ADMINISTER MEDS ORDERED. TELE IS ST AT 105. PT DECLINES SCD'S. NO OTHER APPARENT SIGNS OF DISTRESS. CALL LIGHT IS IN REACH.
--- NOTE | 2022-02-22 03:13 | NUR ---
02/21/22 2347 GOT ORDERS FOR ZOFRAN, CEPACOL LOZENGES AND CHLORASEPTIC SPRAY, ADMINISTERED TO PT, WILL EVAL FOR EFFECT. NO OTHER APPARENT SIGNS OF DISTRESS. PT DENIES NEED FOR ANYTHING ELSE AT THIS TIME. CALL LIGHT IS IN REACH.
--- NOTE | 2022-02-22 03:14 | NUR ---
0200 PT LYING IN BED, EYES CLOSED, APPEARS TO BE RESTING. BREATHING IS EVEN, UNLABORED. NO APPARENT SIGNS OF DISTRESS. CALL LIGHT IS IN REACH.
--- NOTE | 2022-02-22 03:14 | NUR ---
PT LYING IN BED, EYES CLOSED, APPEARS TO BE RESTING. WAKES EASILY TO VERBAL STIMULI. NO APPARENT SIGNS OF DISTRESS. CALL LIGHT IS IN REACH.
[2022-02-22] MEDS ORDERED: FLUT.05NI (04:49)
--- NOTE | 2022-02-22 05:38 | NUR ---
PT IS AAO X 4, SOME STM PROBLEMS. ON RA AT 95%. REPORTS SOB THAT INCREASES WITH EXERTION. REPORTED NAUSEA, COUGH, AND SORE THROAT, GOT ZOFRAN, CEPACOL LOZENGES AND CHLORASEPTIC SPRAY. SCD'S. TELE ST LOW 100'S. PT TO HAVE 2ND PART OF A STRESS TEST THIS MORNING.
--- NOTE | 2022-02-22 05:39 | NUR ---
PT LYING IN BED, EYES CLOSED, APPEARS TO BE RESTING. BREATHING IS EVEN, UNLABORE. NO APPARENT SIGNS OF DISTRESS. CALL LIGHT IS IN REACH. NO OTHER CHANGES THIS SHIFT.
--- NOTE | 2022-02-22 09:43 | NUR ---
PATIENT OUT OF ROOM TO IMAGING TRANSPORTED VIA WHEELCHAIR BY SMT OPERATOR.
--- NOTE | 2022-02-22 14:17 | NUR ---
PATIENT REPORT OF HEADACHE STATED" 01/23". CALLED DR. KING REGARDING PATIENT CONDITION. DR KING PUT ORDER FOR PAIN MEDICATION TO [employer]; SEE EMAR FOR FURTHER DETAILS.
--- NOTE | 2022-02-22 15:24 | NUR ---
PATIENT RECIEVED A DOSE OF FIORICET/ISOCET PO. PATIENT REPORT SIGNS OF RELIEF HEADACHE IS NOW 1/[address] KING FOR AN UPDATES AND DR KING PLAN TO DISCHARGE PATIENT HOME.
[2022-02-22] MEDS ORDERED: BUTALB-ACETAMI1 EAC6 PO (16:21)
--- NOTE | 2022-02-22 17:12 | NUR ---
SHIFT SUMMARY: PATIENT A&OX4. PLEASANT AND COOPERATIVE WITH CARE. PATIENT WAS CONTINENT AND GETS UP TO BATHROOM INDEPENDENTLY THROUGHOUT SHIFT. SECOND PART OF STRESS TEST WAS COMPLETED AND TOLERATED WELL. PATIENT RECIEVED PO PAIN MEDS FOR HEADACHE SEE EMAR AND REPORT OF SIGNS OF RELIEF. PATIENT REPORT MILD CHEST DISCOMFORT THIS MORNING AND REPORT RELIEVED AFTER RECIEVING BREATHING TREATMENT. TOLERATED ORAL INTAKE AND NO SIGNS OF HAVING ABDOMINAL DISCOMFORT. PATIENT VSS. DISCHARGE SUMMARY: PATIENT DISCHARGE HOME. PATIENT WAS MEDICALLY STABLE. DISCHARGED MEDICATION LIST WAS FAXED TO PATIENT PREFFERED PHARMACY ([facility]). DISSCUSS INSTRUCTION DISCHARGE PACKET WITH PATIENT AND SPOUSE. PATIENT AND SHOWS GOOD UNDERSTANDING. QUESTIONS AND CONCERN WERE ADDRESS. PROVIDED ADDITIONAL HANDOUT INFORMATION WITH REGARDS TO PATIENT NEW MEDICATION, DIAGNOSIS THAT HE CAN REFFER TO AT HIS CONVENIENT TIME. PATIENT WAS TRANSPORTED VIA WHEELCHAIR AND TAKEN OUT THIS RN TO PRIVATE VEHICLE.
== END 2022-02-22 17:04 | disposition home or self-care (01) ==
LOC: ER 21:57 → MEDS 21:58
PROVIDERS: Family Medicine; Internal Medicine; Student in an Organized Health Care Education/Training Program; ADMIT Internal Medicine
DX: R07.89 Other chest pain (principal); I10 Essential (primary) hypertension; E11.9 Type 2 diabetes mellitus without complications; R06.02 Shortness of breath; N40.0 Benign prostatic hyperplasia without lower urinary tract symptoms; K21.9 Gastro-esophageal reflux disease without esophagitis; M54.16 Radiculopathy, lumbar region; Z91.018 Allergy to other foods; Z91.013 Allergy to seafood; Z88.2 Allergy status to sulfonamides; Z88.5 Allergy status to narcotic agent; Z88.8 Allergy status to other drugs, medicaments and biological substances; Z79.899 Other long term (current) drug therapy; Z79.82 Long term (current) use of aspirin; Z87.820 Personal history of traumatic brain injury
CPT/HCPCS: 0241U; 36415; 70460; 71045; 71275; 78452; 80053; 80061; 81003; 82803; 82947; 83690; 83735; 83880; 84484; 85025; 85379; 93005; 93010; 93017; 93306; 94640; 94660; 94760; 94762; 99285-25; A9270; A9500; G0480; J0706; J1650; J2405; J2785; J7030; Q9967

== ENCOUNTER 2022-07-15 05:45 | Day surgery (SDC) | payer MEDICARE ==
[~2022-07-15] VITALS: Ht 180.3 cm; Wt 134.6 kg
[~2022-07-15 05:45] MED LIST changes: +BUTALB-ACETAMI1 EAC6 PO; +CLEM1.34 PO; +FLUT.05NI; +FLUTICASONE P15.8 M1
[2022-07-15] MEDS ORDERED: OZEMPIC0.25 MG/0. INJ (06:45)
[2022-07-15] MEDS ORDERED: OLANZAPINE5 M1 PO (06:45)
[2022-07-15] MEDS ORDERED: BREO ELLIPTA 11 EAC1 INH (06:49)
[2022-07-15] MEDS ORDERED: Ativan1 MG PO (06:49)
[2022-07-15] MEDS ORDERED: ABILIFY5 MG PO (06:51)
[2022-07-15] MEDS ORDERED: FISH OIL 1,2001 EAC4 PO (06:52)
--- NOTE | 2022-07-15 07:20 | NUR ---
Ambulatory in Day Surgery. Patient confirms NPO status and agrees with scheduled surgery. Pre-Op teaching done. Pt verbalizes understanding. Patient States Post-Procedure ride home has been arranged. Patient states colon prep results light brown but transparent. Lungs clear T/O to Auscultation. History, Chart, Medications and Allergies reviewed before start of procedure. Patients states his prep was SuTab.
--- NOTE | 2022-07-15 07:23 | NUR ---
07/15/22 0723 Zaki Maria History, Chart, Medications and Allergies reviewed before start of procedure.MONITOR INTACT WITH CONTINUOUS PULSE OXIMETRY AND INTERMITTENT BP.3-LEAD EKG REVIEWED WITH PHYSICIAN PRIOR TO START OF PROCEDURE.O2 VIA POM INTACT THROUGHOUT SEDATION/PROCEDURE. See Anesthesia record.
--- NOTE | 2022-07-15 08:20 | NUR ---
Discharge instructions reviewed with patient. Patient verbalizes understanding. Copy given to patient to take home.
--- NOTE | 2022-07-15 08:27 | NUR ---
Discharged via wheelchair to private car for ride home.
== END 2022-07-15 08:27 | disposition home or self-care (01) ==
LOC: ORSCMMR 05:45 → ORD 07:30 → ORSCMMR 07:30
PROVIDERS: Surgery
PROC: 0DBL8ZX Excision of Transverse Colon, Via Natural or Artificial Opening Endoscopic, Diagnostic (ICD-10-PCS; principal; 2022-07-15 07:30)
PROC: 0DBK8ZX Excision of Ascending Colon, Via Natural or Artificial Opening Endoscopic, Diagnostic (ICD-10-PCS; principal; 2022-07-15 07:30)
DX: Z12.11 Encounter for screening for malignant neoplasm of colon (principal); Z86.010 Personal history of colon polyps; D12.2 Benign neoplasm of ascending colon; D12.3 Benign neoplasm of transverse colon; K64.4 Residual hemorrhoidal skin tags; K64.8 Other hemorrhoids; K57.30 Diverticulosis of large intestine without perforation or abscess without bleeding; I10 Essential (primary) hypertension; J44.9 Chronic obstructive pulmonary disease, unspecified; G47.33 Obstructive sleep apnea (adult) (pediatric); K21.9 Gastro-esophageal reflux disease without esophagitis; E11.9 Type 2 diabetes mellitus without complications; F31.9 Bipolar disorder, unspecified; Z86.73 Personal history of transient ischemic attack (TIA), and cerebral infarction without residual deficits; E66.01 Morbid (severe) obesity due to excess calories; Z68.41 Body mass index [BMI] 40.0-44.9, adult; Z79.899 Other long term (current) drug therapy
CPT/HCPCS: 82947; 88305; J2704; J7120

== ENCOUNTER → 2022-10-14 | Outpatient (CLI) | payer OTHER ==
[~2022-10-14] MED LIST changes: +ABILIFY5 MG PO; +Ativan1 MG PO; +BREO ELLIPTA 11 EAC1 INH; +FISH OIL 1,2001 EAC4 PO; +OLANZAPINE5 M1 PO; +OZEMPIC0.25 MG/0. INJ
[2022-10-14 17:29] LABS: Adenovirus F 40/41 Not Detected (NOT DETECT); Astrovirus Not Detected (NOT DETECT); C DIFFICILE DNA Duplicate (Negative); Campylobacter Sp Not Detected (NOT DETECT); Cryptosporidium Not Detected (NOT DETECT); Cyclospora Cayetanensis Not Detected (NOT DETECT); E. Coli O157 Not Detected (NOT DETECT); Entamoeba Histolytica Not Detected (NOT DETECT); Enteroaggregative E. coli-EAEC Not Detected (NOT DETECT); Enteropathogenic E. coli-EPEC Not Detected (NOT DETECT); Enterotoxigenic E. coli-ETEC Not Detected (NOT DETECT); Giardia Lamblia Not Detected (NOT DETECT); Norovirus GI/GII Not Detected (NOT DETECT); Plesiomonas Shigelloides Not Detected (NOT DETECT); Rotavirus A Not Detected (NOT DETECT); Salmonella Sp Not Detected (NOT DETECT); Sapovirus Not Detected (NOT DETECT); Shiga Toxin-prod E. coli-STEC Not Detected (NOT DETECT); Shigella/Enteroin E. coli-EIEC Not Detected (NOT DETECT); Vibrio Cholerae Not Detected (NOT DETECT); Vibrio Sp Not Detected (NOT DETECT); Yersinia Enterocolitica Not Detected (NOT DETECT)
== END ==
LOC: LAB SHORT 14:32
PROVIDERS: Family Medicine
DX: R19.7 Diarrhea, unspecified (principal)
CPT/HCPCS: 87507

== ENCOUNTER → 2022-12-28 | Outpatient (CLI) | payer OTHER ==
[2022-12-28 11:39] LABS: Protein, Urine Quantitative 12.8 mg/dL (0.0-11.9)
[2022-12-28 11:50] LABS: Microalb/Creat Ratio UR, Rand 14.234 mg/g (0.000-30.000); Microalbumin, Random Urine 19.5 mg/L (0.000-20.000)
== END | disposition home or self-care (01) ==
LOC: LAB 09:24 → LAB SHORT 09:24
PROVIDERS: Internal Medicine Nephrology
DX: N18.2 Chronic kidney disease, stage 2 (mild) (principal); D63.1 Anemia in chronic kidney disease; E55.9 Vitamin D deficiency, unspecified; R76.9 Abnormal immunological finding in serum, unspecified; R94.5 Abnormal results of liver function studies; R94.6 Abnormal results of thyroid function studies; D51.8 Other vitamin B12 deficiency anemias; D52.8 Other folate deficiency anemias; D50.9 Iron deficiency anemia, unspecified
CPT/HCPCS: 81050; 82043; 82570; 84156

== ENCOUNTER → 2023-02-15 | Outpatient (CLI) | payer OTHER | END | disposition home or self-care (01) | LOC: LAB SHORT 11:46 → LAB 11:46 | DX: R23.4 Changes in skin texture (principal); B35.3 Tinea pedis | CPT/HCPCS: 87210 ==

== ENCOUNTER → 2023-06-29 | Outpatient (CLI) | payer OTHER ==
[2023-06-30 08:15] LABS: Adenovirus F 40/41 Not Detected (NOT DETECT); Astrovirus Not Detected (NOT DETECT); Campylobacter Sp Not Detected (NOT DETECT); Cryptosporidium Not Detected (NOT DETECT); Cyclospora Cayetanensis Not Detected (NOT DETECT); E. Coli O157 Not Detected (NOT DETECT); Entamoeba Histolytica Not Detected (NOT DETECT); Enteroaggregative E. coli-EAEC Not Detected (NOT DETECT); Enteropathogenic E. coli-EPEC Not Detected (NOT DETECT); Enterotoxigenic E. coli-ETEC Not Detected (NOT DETECT); Giardia Lamblia Not Detected (NOT DETECT); Norovirus GI/GII Not Detected (NOT DETECT); Plesiomonas Shigelloides Not Detected (NOT DETECT); Rotavirus A Not Detected (NOT DETECT); Salmonella Sp Not Detected (NOT DETECT); Sapovirus Not Detected (NOT DETECT); Shiga Toxin-prod E. coli-STEC Not Detected (NOT DETECT); Shigella/Enteroin E. coli-EIEC Not Detected (NOT DETECT); Vibrio Cholerae Not Detected (NOT DETECT); Vibrio Sp Not Detected (NOT DETECT); Yersinia Enterocolitica Not Detected (NOT DETECT)
[2023-07-02 18:03] LABS: CALPROTECTIN,FECAL 23 ug/g (<=49)
[2023-07-03 03:13] LABS: PANCREATIC ELASTASE,FECAL >800 ug/g (>=100)
== END ==
LOC: LAB 15:45 → LAB SHORT 15:45
PROVIDERS: Family Medicine; Physician Assistant Medical
DX: K52.9 Noninfective gastroenteritis and colitis, unspecified (principal); R19.7 Diarrhea, unspecified
CPT/HCPCS: 82653; 83993; 87507

== ENCOUNTER 2024-01-01 12:45 | Day surgery (SDC) | payer OTHER ==
[~2024-01-01] VITALS: Ht 180.3 cm; Wt 141.2 kg
[~2024-01-01 12:45] MED LIST changes: +Lactated Ringer's 1,000 ML IV ONE
[2024-01-01] MEDS ORDERED: Lidocaine HCl 4% 5 ML SDA ONE (12:59)
[2024-01-01] MEDS ORDERED: Lactated Ringer's 1,000 ML IV ONE (13:19)
[2024-01-01] MEDS ORDERED: propofoL 50 ML IV ONE (13:29)
--- NOTE | 2024-01-01 13:30 | NUR ---
01/01/[address] SUERO, LIDOCAINE 4% PULLED FROM [place]. DR SUERO ADMINISTERED TO BACK OF PATIENT'S THROAT PRIOR TO START OF UPPER ENDOSCOPY
[2024-01-01 14:31] VITALS: BP 136/95
== END 2024-01-01 14:20 | disposition home or self-care (01) ==
LOC: ORSCSDS 12:45
PROVIDERS: Specialist
PROC: 0DB68ZX Excision of Stomach, Via Natural or Artificial Opening Endoscopic, Diagnostic (ICD-10-PCS; principal; 2024-01-01 14:00)
PROC: 0DB98ZX Excision of Duodenum, Via Natural or Artificial Opening Endoscopic, Diagnostic (ICD-10-PCS; principal; 2024-01-01 14:00)
PROC: 0DB58ZX Excision of Esophagus, Via Natural or Artificial Opening Endoscopic, Diagnostic (ICD-10-PCS; principal; 2024-01-01 14:00)
DX: K21.9 Gastro-esophageal reflux disease without esophagitis (principal); K52.9 Noninfective gastroenteritis and colitis, unspecified; I10 Essential (primary) hypertension; E78.5 Hyperlipidemia, unspecified; G47.33 Obstructive sleep apnea (adult) (pediatric); F31.9 Bipolar disorder, unspecified; E11.9 Type 2 diabetes mellitus without complications; E66.01 Morbid (severe) obesity due to excess calories; Z68.41 Body mass index [BMI] 40.0-44.9, adult; Z79.82 Long term (current) use of aspirin; Z79.85 Long-term (current) use of injectable non-insulin antidiabetic drugs; Z79.899 Other long term (current) drug therapy
CPT/HCPCS: 82947; 88305; 88341; 88342; J2001; J2704; J7120

== ENCOUNTER → 2024-10-10 | Outpatient (CLI) | payer OTHER ==
[~2024-10-10] MED LIST changes: -Lactated Ringer's 1,000 ML IV ONE
[2024-10-10 10:08] LABS: BASOPHILS ABSOLUTE AUTO 0.03 K/mm3 (0.00-0.23); BASOPHILS PERCENT AUTO 0 % (0-2); EOSINOPHILS ABSOLUTE AUTO 0.03 K/mm3 (0.00-0.68); EOSINOPHILS PERCENT AUTO 0 % (0-6); Hematocrit 50.2 % (37.0-53.0); Hemoglobin 16.7 g/dL (13.5-17.5); IMMATURE GRAN ABSOLUTE AUTO 0.06 K/mm3 (0.00-0.10); IMMATURE GRAN PERCENT AUTO 0 % (0-1); LYMPHOCYTES ABSOLUTE AUTO 1.86 K/mm3 (0.84-5.20); LYMPHOCYTES PERCENT AUTO 14 % (21-46); MONOCYTES ABSOLUTE AUTO 0.99 K/mm3 (0.16-1.47); MONOCYTES PERCENT AUTO 7 % (4-13); Mean Corpuscular HGB Conc 33.3 g/dL (31.5-36.5); Mean Corpuscular Volume 87 fL (80-100); Mean Platelet Volume 9.5 fL (9.1-12.4); NEUTROPHILS PERCENT AUTO 78 % (41-73); Platelet Count 280 K/mm3 (150-400); RDW Coefficient Variation 13.7 % (11.7-14.2); RDW Standard Deviation 43.1 fL (35.1-46.3); Red Blood Cell Count 5.75 M/mm3 (4.30-5.90); White Blood Cell Count 13.67 K/mm3 (4.00-11.30)
[2024-10-10 10:21] LABS: Albumin, Blood 4.6 g/dL (3.4-5.0); Bilirubin, Total 0.7 mg/dL (0.1-1.0); Bun/Creatinine Ratio 8.8 (12.0-20.0); Calcium, Blood 11.7 mg/dL (8.5-10.1); Creatinine, Blood 1.81 mg/dL (0.60-1.20); Globulin, Blood 4.6 g/dL (2.2-4.0); Potassium, Blood 4.5 mmol/L (3.5-5.5); Total Protein, Blood 9.2 g/dL (6.4-8.2)
== END ==
LOC: LAB 10:03 → LAB SHORT 10:03
DX: R11.10 Vomiting, unspecified (principal)
CPT/HCPCS: 80053; 83690; 85025